=== PATIENT | female | born 1950 ===

== ENCOUNTER 2019-07-18 10:12 | Outpatient (CLI) | payer OTHER ==
[~2019-07-18 10:12] MED LIST: NABUMETONE500 MG PO; PERCOCET 5/3251 TAB PO; PROTONIX40 M1 PO
== END 2019-07-18 10:26 | disposition home or self-care (01) ==
LOC: NUCLEAR 10:12
DX: R00.2 Palpitations (principal); R03.0 Elevated blood-pressure reading, without diagnosis of hypertension